=== PATIENT | male | born 1960 | race Caucasian/White ===

== ENCOUNTER 2019-01-25 22:08 | Inpatient (IN) | payer MEDICARE, OTHER, MEDICAID | END 2019-01-30 14:25 | disposition home or self-care (01) | LOC: ER 22:08 → ED HOLD 01-26 00:42 → SUR 3N 01-26 09:01 | DX: A41.9 Sepsis, unspecified organism (principal); J18.1 Lobar pneumonia, unspecified organism; J96.21 Acute and chronic respiratory failure with hypoxia; J44.0 Chronic obstructive pulmonary disease with (acute) lower respiratory infection; J44.1 Chronic obstructive pulmonary disease with (acute) exacerbation; E87.1 Hypo-osmolality and hyponatremia; I50.9 Heart failure, unspecified ==